=== PATIENT | female | born 1995 | race Caucasian/White ===

== ENCOUNTER → 2022-09-03 | Outpatient (CLI) | payer SELFPAY ==
--- NOTE | 2022-09-03 09:00 | BI_ITS ---
MAMMOGRAPHY - BILATERAL DIAGNOSTIC REASON FOR EXAM: Female, 26 years old. Lateral left breast swelling with lumpiness. PERTINENT HISTORY: Sister with breast cancer. TECHNIQUE: Digital bilateral breast addison (3D mammographic acquisition) in the CC and MLO projections. 2-D mediolateral oblique (MLO) and craniocaudad (CC) views of both breasts were obtained. CAD: Full Field Digital Mammography with Computer Added Detection was performed. COMPARISON: None. Baseline examination. FINDINGS: Breast Composition: The breasts are extremely dense, which lowers the sensitivity of mammography. There are no dominant masses or suspicious calcifications. No other significant abnormalities are identified. BI/DIAG MAMM W/CAD, BILAT IMPRESSION: Negative diagnostic mammogram. With the patient''s history of lumpiness and swelling in the lateral aspect of the left breast, correlation with ultrasound is recommended. ASSESSMENT CATEGORY: BIRADS Category 0: Incomplete. Need additional imaging evaluation. A letter regarding these results will be sent to the patient by the facility within 30 days. Approximately 10% of breast cancers are not detected by mammography. A normal mammogram should not delay biopsy of a clinically suspicious abnormality. Electronically Signed: Roe Samaniego MD at 9:39 EDT ,
--- NOTE | 2022-09-03 09:00 | US_ITS ---
STUDY: ULTRASOUND BREAST - LEFT REASON FOR EXAM: Female, 26 years old. Left breast tenderness and swelling. TECHNIQUE: Axial and longitudinal images of the LEFT breast were performed with a high resolution ultrasound transducer. # OF IMAGES: 42 COMPARISON: Comparison is made with prior study done earlier in the day. FINDINGS: LEFT Breast: The upper lateral aspect of the left breast was examined with ultrasound. There is evidence of a 1.7 cm x 1.6 cm x 0.7 cm benign-appearing lymph node. US/Breast Limited Unilateral IMPRESSION: 1.7 cm x 1.6 cm x 0.7 cm benign appearing lymph node in the left axilla. ASSESSMENT CATEGORY: BIRADS Category 2: Benign. A letter regarding these results will be sent to the patient by the facility within 30 days. Electronically Signed: Roe Samaniego MD at 15:15 EDT ,
== END | disposition home or self-care (01) ==
PROVIDERS: PCP Family Medicine; Referring Provider Family Medicine; Visit Provider Family Medicine
DX: N63.20 Unspecified lump in the left breast, unspecified quadrant (principal); N64.4 Mastodynia; Z80.3 Family history of malignant neoplasm of breast
CPT/HCPCS: 76642; 77062; 77066; G0279